=== PATIENT | male | born 1970 | race Caucasian/White ===

== ENCOUNTER 2020-04-17 13:04 | Observation (INO) | payer SELFPAY ==
[2020-04-17] VITALS (15 sets, daily range): BP systolic 91–131; BP diastolic 53–87; PULSE 49–80; RESP 10–19; TEMP 36.6–37.1; O2SAT 96–100; BMI 22.4; BMI 21.8; BMI 20.7; BMI 20.8
--- NOTE | 2020-04-17 13:05 | CT_ITS ---
STUDY: CT HEAD STROKE PROTOCOL W/O CONTRAST INJECTION REASON FOR EXAM: Male, 49 years old. CVA RADIATION DOSAGE (If Supplied By Facility): CTDIvol = ( ) mGy, DLP = ( ) mGycm TECHNIQUE: Transaxial CT imaging of the brain was performed without administration of intravenous contrast material. Individualized dose optimization techniques were used for this CT. COMPARISON: No relevant priors. FINDINGS: Normal soft tissue structures. Normal calvarium. Normal size ventricles and extra-axial spaces for the patient''s age. Normal white matter tracts of the cerebral hemispheres. Normal basal ganglia and thalami. Normal brainstem. Normal cerebellum. There is no intracranial hemorrhage. There are no findings of an acute ischemic infarction. Normal visualized paranasal sinuses. ASPECT score: CT/STROKE Brain/Head without Cont IMPRESSION: Normal unenhanced CT scan of the brain. N.B. : The above information has been verbally conveyed by Michele Costello MD to ARNAUD Lopez on 04/17/2020 13:22:50 (ET). Electronically Signed: Michele Costello MD at 13:24 EST Tel , Service support ,
--- NOTE | 2020-04-17 13:05 | RAD_ITS ---
STUDY: X-RAY CHEST REASON FOR EXAM: Male, 49 years old. NEURO DEFICIT, ACUTE, STROKE SUSPECTED. SLIGHT CHEST DISCOMFORT. TECHNIQUE: Single AP portable view of the chest. COMPARISON: None. FINDINGS: There are calcified granulomas in the right upper lobe. The lungs are clear and expanded. There is no demonstrated pleural abnormality. Normal size heart. Normal mediastinum and manny. Normal visualized pulmonary arteries. Normal visualized aortic arch and descending thoracic aorta. Dextroscoliosis of the thoracic spine. Partially visualized lumbar spine fusion. Normal visualized ribs, clavicles, and shoulders. There is no demonstrated abnormality of the visualized soft tissue structures of the upper abdomen. RAD/Chest 1 View IMPRESSION: Degenerative changes, as described above. No demonstrated acute cardiopulmonary process. Electronically Signed: Yu Rose MD at 14:38 EST Tel , Service support ,
--- NOTE | 2020-04-17 13:05 | EKG12_ITS ---
Test Reason : STROKE ALERT Blood Pressure : / mmHG Vent. Rate : 072 BPM Atrial Rate : 072 BPM P-R Int : 158 ms QRS Dur : 104 ms QT Int : 392 ms P-R-T Axes : 065 073 058 degrees QTc Int : 429 ms Normal sinus rhythm Normal ECG Confirmed by FRIDA METCALF, ANGEL ([id number]), technical editor MICHAELA GABRIEL ([id number]) on 04/19/2020 11:55:15 A M Referred By: CANDICE Confirmed By:OSMAN GALICIA MD
--- NOTE | 2020-04-17 13:06 | CT_ITS ---
STUDY: CTA HEAD AND NECK WITH CONTRAST REASON FOR EXAM: Male, 49 years old. CVA, RT SIDED WEAKNESS, PREV STROKE ONE YR AGO RADIATION DOSAGE (If Supplied By Facility): CTDIvol = ( 19.29 ) mGy, DLP = ( 665.05 ) mGycm TECHNIQUE: CT angiography was performed with a multi-detector CT scanner. Data acquisition was obtained from the skull base through the vertex following intravenous administration of IV 100mL Isovue-370. MIP images were reconstructed from the axial data set. Post-processing of the angiographic images was performed, with multiplanar reformation and 3D reconstruction. Individualized dose optimization techniques were used for this CT. COMPARISON: No relevant priors. FINDINGS: Normal bilateral petrous carotid arteries. Normal right cavernous carotid artery with a normal supraclinoid bifurcation. Normal left cavernous carotid artery with a normal supraclinoid bifurcation. Normal right A1 segments of the anterior cerebral artery. Normal left A1 segments of the anterior cerebral artery. Normal intact anterior communicating artery (ACOM). Normal bilateral A2 segments of the anterior cerebral arteries. Normal right M1 and M2 segments of the middle cerebral arteries, with a normal M1 bifurcation. Normal left M1 and M2 segments of the middle cerebral arteries, with a normal M1 bifurcation. Normal right posterior communicating artery (PCOM). Normal left posterior communicating artery (PCOM). Normal bilateral vertebral arteries. Normal basilar artery with a normal basilar bifurcation. The visualized bilateral superior cerebellar (SCA) arteries are normal. Normal bilateral P1, P2 and visualized P3 segments of the posterior cerebral arteries. There is no demonstrated aneurysm of the [place] of [place]. There is no demonstrated abnormality of the visualized brain. AORTIC ARCH: Normal visualized aortic arch. Normal origins of the brachiocephalic, left common carotid, and left subclavian arteries. RIGHT CAROTID ARTERIES: Normal right common carotid artery (CCA). Normal right common carotid bulb. Normal origin of the right internal carotid (ICA) artery without a hemodynamically significant stenosis. Normal visualized cervical portion of the right internal carotid artery. Normal origin of the right external carotid artery (ECA). LEFT CAROTID ARTERIES: Normal left common carotid artery (CCA). Normal left common carotid bulb. Normal origin of the left internal carotid (ICA) artery without a hemodynamically significant stenosis. Normal visualized cervical portion of the left internal carotid artery. Normal origin of the left external carotid artery (ECA). VERTEBRAL ARTERIES: Normal bilateral vertebral arteries. CT/STROKE CTA Head AND Neck W/Con IMPRESSION: Normal CTA Head and neck with contrast. N.B. : The above information has been verbally conveyed by Michele Costello MD to ARNAUD Lopez on 04/17/2020 13:40:31 (ET). Electronically Signed: Michele Costello MD at 13:41 EST Tel , Service support ,
--- NOTE | 2020-04-17 13:08 | ED.VISSUMM ---
- ER Visit Summary Date of Service: 04/17/20 Chief Complaint: [Blurred vision and paresthesias to the right arm and right leg] History of Present Illness: The patient is a 49 M [presents to the emergency department with symptoms that started this morning at 9 AM. Patient states that initially started with certain blurred vision in both eyes. He denies visual field loss. Patient states that he then developed numbness and tingling in the right arm and right leg and feeling he is having a tougher time walking because the leg feels somewhat more weak. Patient tells me he had a stroke about a year ago and was seen at a hospital in [place]. Patient did not have any leftover deficits from prior stroke. Patient did not receive TPA with his prior stroke. Patient otherwise tells me he has no medical history. Patient is a smoker. Patient has had prior spinal fusion.] Physical Examination: [HEENT-PERRLA, EOMI. Cranial nerves II through XII grossly intact. TMs clear. Mucous membranes moist. No adenopathy. Cardiovascular-regular rate and rhythm without murmur or ectopy Lungs-clear to auscultation, chest wall stable without crepitus or subcu emphysema Abdomen-normoactive bowel sounds, soft, nontender, no rebound or rigidity, no peritoneal signs. Neuro exam-patient has an NIH stroke scale of 2 for some subtle weakness of the right leg compared to the left and paresthesias of the right leg and arm. No ataxia noted. GCS is 15. No facial droop noted. Extremities-intact ?4, normal range of motion, normal pulses, atraumatic] Test Results: [EKG obtained on arrival shows sinus rhythm with a ventricular rate of 72 bpm with no acute ST segment changes. CBC with differential showed a white of 8.3, hemoglobin 13.8, hematocrit 42.5, placed 352. Chemistries unremarkable. INR was 1.0. Troponin less than 0.015. CT scan of the brain without contrast was normal. CTA of the head and neck obtained was normal.] Emergency Department Course and Treatment: [IV line established on arrival. Patient placed on a monitoring and evaluation advisor. A stroke team was called immediately upon patient arrival. Patient is not a TPA candidate as he was 4 hours from symptom onset on arrival to the emergency department. Patient was evaluated by neurologist and neurologist was in agreement that patient's NIH was a 2 and was outside the window for TPA.] Treatment Plan: [Admit for further work-up of stroke] Disposition: [Admit] Impression: [CVA] This note was generated with [employer] dictation software. It may contain incorrect words, spelling, and punctuation that were not noted in review of the chart prior to signing ED Disposition - Plan for ED Patient: Referrals: NOT,DEFINED [Primary Care Provider] -
--- NOTE | 2020-04-17 13:11 | CM.ED ---
Social Work Responding to stroke alert. Patient A&O. Patient speaking with medical team. No family currently present. Will continue to follow as needed. Amado Garcia MSW, ROWDYS
[2020-04-17 13:21] LABS: Absolute Lymphocyte Count 2.26 X10^3/uL (0.83-4.51); Absolute Neutrophil Count 5.1 X10^3/uL (2.0-7.7); Basophil# 0.03 X10^3/uL; Basophil% 0.4 % (0-1); Eosinophil# 0.31 X10^3/uL; Eosinophils% 3.7 % (0-5); Hematocrit 42.5 % (40-54); Hemoglobin 13.8 g/dL (13.0-16.5); Lymphocyte # 2.26 X10^3/ul (4.0); Lymphocyte % 27.1 % (19-41); Mean Corp Hgb Conc 32.5 g/dL (32-36); Mean Corpuscular Hgb 32.3 pg (27.0-32.0); Mean Corpuscular Volume 99.5 fL (80-94); Mean Platelet Vol. 9.2 fl (6.2-12.0); Monocyte% 7.2 % (0-10); NRBC Flagged by Analyzer 0 % (0-5); Neutrophil # 5.11 X10^3/uL (2.7-7.7); Neutrophil % 61.4 % (47-70); Platelet Count 352 K/mm3 (150-450); RBC Distribution Width CV 12.6 % (11.6-14.6); RBC Distribution Width SD 46.5 fl (35.1-43.9); Red Blood Count 4.27 M/mm3 (4.6-6.2); White Blood Count 8.3 K/mm3 (4.4-11.0)
[2020-04-17 13:36] LABS: Prothrombin Time (Protime)PT. 12.5 SECONDS (11.7-14.9)
[2020-04-17 13:37] LABS: Anion Gap 4 (5-15); BUN 14 mg/dL (7-18); BUN/Creat Ratio 11.9 RATIO (10-20); Calcium,Total 9.1 mg/dL (8.5-10.1); Chloride 106 mmol/L (98-107); Creatinine, Serum 1.18 mg/dL (0.70-1.30); EST Glomerular Filtration Rate 69 mL/min (>60); Est Glom Filt Rate - Afr Amer 84 mL/min (>60); Estimated Creatinine Clearance 76.47 ml/min; Glucose 110 mg/dL (74-106); Partial Thromboplast Time 28.4 Seconds (24.1-36.2); Potassium 4.1 mmol/L (3.5-5.1); Sodium Level 139 mmol/L (136-145)
[2020-04-17] MEDS: 0.9% Normal Saline 1,000 ML 100 ML IV ×3 (13:46→19:46)
[2020-04-17 13:51] LABS: Bedside Glucose 111 mg/dL (70-110)
--- NOTE | 2020-04-17 14:06 | HP.PCM_ITS ---
Problem List (1) CVA (cerebral vascular accident) Status: Acute Qualifiers: CVA mechanism: unspecified Qualified Code(s): I63.9 - Cerebral infarction, unspecified (2) History of CVA (cerebrovascular accident) Status: Chronic (3) Seizure disorder Status: Chronic (4) Tobacco use Status: Chronic History of Present Illness Date of Admission: 04/17/20 Chief Complaint: R sided paresthesias, Blurred vision. The patient is a 49 y/o M w/ PMHx: ? Hx CVA ~ 1 year prior with no deficits and no history of TPA administration, Tobacco use, Chronic back pain with history of spinal fusion, Seizure disorder who reports not having taken his medication for several months who presents to the [facility] ED on 04/17/20 with history of onset at approximately 9 AM right-sided upper and lower extremity paresthesias described as a tingling and numbness as well as bilateral eye vision blurriness with no specific field deficit or losses as well as reportedly sensation of lower extremity weakness with history of remote stroke approximately 1 year prior to current presentation evaluated that time in [place]. 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 He states the job opportunity was not exactly what he thought it was can be and has no intention of taking it. Patient currently reporting a frontal throbbing headache, rated 3-4 out of 10. Denies specifically any migraine history. Work-up in the ED included T 98.7, heart rate 80, BP 131/81, respiratory rate 19, 99% on room air, CBC with WC 8.3, hemoglobin 13.8, platelet 350 without shift, unremarkable coags, unremarkable BMP aside glucose 110, troponin less than 0.015, CT of the brain with no acute intracranial findings, unremarkable normal-appearing CTA head and neck, EKG with sinus rhythm with no acute cardiopulmonary findings. The ED patient was admini stered normal saline. ED NH stroke scale was 2 (RLE mild weakness and paresthesias) with evaluation per neurology, teleneurology and felt outside the TPA window. In the ED of note patient did also have appearance of right facial droop but this corrects when he is distracted and teleneurology did note the same thing. Past Medical History Past Medical History (Chronic Problems): Chronic Problems History of CVA (cerebrovascular accident) (Chronic) Seizure disorder (Chronic) Tobacco use (Chronic) Allergies No Known Allergies Allergy (Verified 04/17/20 13:05) Home Medications: Ambulatory Orders Medication Instructions Recorded Phenytoin [Dilantin] 150 mg PO DAILY 04/17/20 Surgical History: - - Lumbar spinal fusion. Psychiatric History: No pertinent psych hx Lives: Alone Smoking Status: Current every day smoker - Patient with ongoing 1 pack/day cigarette tobacco usage since she was a teenager. Tobacco Use: Cigarettes Alcohol: None Drugs: None - *Family History Maternal History Items: Diabetes Paternal History Items: Heart Disease - Father with history of related to [place] at age 67. Review of Systems Constitutional: Reports: Fatigue. Denies: Chills, Fever, Weight Change HEENT: Reports: Head Aches. Denies: Sinus Congestion, Sinus Drainage Cardiovascular: Denies: Chest Pain, Palpitations Respiratory: Denies: Cough, Shortness of breath at rest, Sputum production Gastrointestinal: Denies: Abdominal Pain, Nausea, Vomiting Genitourinary: Denies: Dysuria Musculoskeletal: Reports: Back Pain, Joint Pain. Denies: Joint Tenderness Skin: Denies: Rash, Wounds Neurological: Reports: Blurred vision, Focal weakness, Numbness, Tingling, Seizures - Seizure disorder off medications., - - R facial droop. Psychiatric: Denies: Anxiety, Depression, Homicidal Ideations, Suicidal Ideations Hematologic/ Lymphatic: Denies: Easy Bruising, Easy Bleeding VTE Information - Inpt Only VTE Present on Admission: No VTE Mechan Device Prophylaxis: SCD's VTE Pharm Prophylaxis ordered?: Yes Subjective: Patient seated upright in ED bed, no distress evident, notes headache otherwise no complaints. Objective: Physical Examination: General: awake, alert, oriented x 3 and cooperative, seated upright in the ED bed, no acute distress. Skin: normal color, turgor, no icterus, cyanosis. HEENT: AT/NC, EOMI, PERRLA, MMM, no carotid bruits or JVD noted. Lungs: Diminished breath sounds, greater bases, normal effort, no rales, ronchi or wheezing. Heart: Regular rate and rhythm; no gallop, rub audible. Abdomen: soft, NTTP, ND, normal BS, no HSM. Extremities: no cyanosis, clubbing, or edema. Neurological: patient awake, alert, oriented x 3; cognitive function appears intact; pupils equally reactive to light and accomodation; cranial nerves II-XII grossly normal except complaining of bilateral still blurry vision although peripheral stallings intact as well as right-sided facial droop but corrects when distracted and with smile, moving all extremities, continues to describe right- sided facial and upper and lower extremity paresthesias, moving all 4 extremities, [id number] and [id number] appropriate, negative Babinski, Mcfadden sign present. Psychiatric: affect appears normal, no acute evidence of depressive or anxiety feelings. - Physical Exam Vitals/I&O's: Vital Signs Temp Pulse Resp BP Pulse Ox 98.7 F 71 15 114/81 H 100 04/17/20 13:28 04/17/20 13:38 04/17/20 13:38 04/17/20 13:38 04/17/20 13:38 Oxygen Delivery Method Room Air Weight: 160 lb 14.999 oz Body Mass Index (BMI) 21.8 Finger Stick Blood Glucose 111 Laboratory Results 04/17/20 13:10: WBC 8.3, RBC 4.27 L, Hgb 13.8, Hct 42.5, MCV 99.5 H, MCH 32.3 H, MCHC 32.5, RDW Std Deviation 46.5 H, RDW Coeff of Alan 12.6, Plt Count 352, MPV 9.2, Immature Gran % (Auto) 0.200, Neut % (Auto) 61.4, Lymph % (Auto) 27.1, [place] % (Auto) 7.2, Eos % (Auto) 3.7, Baso % (Auto) 0.4, Absolute Neuts (auto) 5.1, Absolute Lymphs (auto) 2.26, Nucleated RBC % 0 04/17/20 13:10: PT 12.5, INR 1.0, APTT 28.4 04/17/20 13:10: Sodium 139, Potassium 4.1, Chloride 106, Carbon Dioxide 29.0, Anion Gap 4 L, BUN 14, Creatinine 1.18, Estim Creat Clear Calc 76.47, Est GFR (MDRD) Af Amer 84, Est GFR (MDRD) Non-Af 69, BUN/Creatinine Ratio 11.9, Glucose 110 H, Calcium 9.1, Troponin I < 0.015 04/17/20 13:21: POC Glucose 111 H Current Medications Sodium Chloride () 1,000 mls @ 100 mls/hr IV .Q10H ONE Stop: 04/17/20 23:04 Last Admin: 04/17/20 13:46 Dose: 100 mls/hr Documented by: Iopamidol (Contrast Allergy Safety Check) 0 ml IV X1 TI Labetalol HCl (Labetalol (Prefilled) 20 Mg/4 Ml) 20 mg IV X1 PRN PRN Reason: BLOOD PRESSURE Assessment/Plan All Active Problems CVA (cerebral vascular accident) (Acute) The patient is a 49 y/o M w/ PMHx: ? Hx CVA ~ 1 year prior with no deficits, Tobacco use, Chronic back pain, Seizure disorder who presents to the [facility] ED on 04/17/20 with history of onset at approximately 9 AM right-sided upper and lower extremity paresthesias described as a tingling and numbness as well as bilateral eye vision blurriness with no specific field deficit or losses as well as reportedly sensation of lower extremity weakness. 1. Right-sided paresthesias, right lower extremity weakness, right questionable facial droop concerning for TIA/CVA: Will admit to PCU, will obtain MRI Brain, ECHO, PT/OT/Speech/Nutrition evaluation per protocol. Will consult Neurology for evaluation once evaluation completed for input. Will allow permissive HTN, maintain on asa, add high dose statin w/ AM FLP, fall precautions. Mag, TSH, HgBA1c, FLP pending as noted. Patient examination in the emergency room with some concern for purposely falsified examination however when patient is distracted examination appropriate therefore this may need to be further investigated if MRI is negative. Will obtain UDS. 2. History of Seizure: Restart home phenytoin regimen as patient notes he is not been using this for several months for unclear reason. 3. Tobacco Abuse: Encouraged cessation, inpatient consultation per RT, NR if desired. 4. Chronic back pain: s/p Spinal fusion, encourage positional changes, fall precautions, PT/OT consulted. 5. DVT prophylaxis: SCDs, lovenox. OBSV E&M: 74181 Initial observation care L3
--- NOTE | 2020-04-17 14:20 | ED.RN ---
[facility] TO [facility] ABOUT [facility] PATIENT AND I WAS 11TH IN LINE ON THE PHONE AND WAS NOT ABLE TO LEAVE A MESSAGE.
[2020-04-17] MEDS: Aspirin 81 MG TAB.CHEW PO (14:37)
--- NOTE | 2020-04-17 15:26 | PCS.PANDOC ---
PANDEMIC DOCUMENTATION INITIATED: Date: 04/17/2020 Time: 7486
[2020-04-17 16:24] LABS: Magnesium 2.2 mg/dL (1.6-2.6)
[2020-04-17] MEDS: CLARIFY ORDER NOTE (16:32)
[2020-04-17] MEDS: Acetaminophen 325 MG Tablet 650 MG PO (20:48)
[2020-04-17] MEDS: Atorvastatin Calcium 80 MG Tablet PO (20:48)
[2020-04-18] VITALS (8 sets, daily range): BP systolic 100–124; BP diastolic 61–87; PULSE 56–80; RESP 16; TEMP 36.5–36.7; O2SAT 97–100
[2020-04-18 04:06] LABS: Amphetamine Urine VISTA NEGATIVE (<1000 ng/mL); Barbiturate Urine VISTA NEGATIVE (< 200 ng/mL); Benzodiazepine Urine VISTA NEGATIVE (< 200 ng/mL); Cocaine Urine VISTA POSITIVE (< 300 ng/mL); Ecstacy Urine VISTA NEGATIVE (< 500 ng/mL); Methadone Urine VISTA NEGATIVE (< 300 ng/mL); PCP Urine VISTA NEGATIVE (< 25 ng/mL); THC Urine VISTA NEGATIVE (< 50 ng/mL); Vista UDS pH Range 6
[2020-04-18] MEDS: 0.9% Normal Saline 1,000 ML 100 ML IV (05:55)
[2020-04-18 06:12] LABS: Absolute Lymphocyte Count 2.36 X10^3/uL (0.83-4.51); Absolute Neutrophil Count 3.2 X10^3/uL (2.0-7.7); Basophil# 0.03 X10^3/uL; Basophil% 0.5 % (0-1); Eosinophil# 0.34 X10^3/uL; Eosinophils% 5.3 % (0-5); Hemoglobin 11.8 g/dL (13.0-16.5); Lymphocyte # 2.36 X10^3/ul (4.0); Lymphocyte % 36.5 % (19-41); Mean Corp Hgb Conc 31.9 g/dL (32-36); Mean Corpuscular Hgb 32.4 pg (27.0-32.0); Mean Corpuscular Volume 101.6 fL (80-94); Mean Platelet Vol. 9.5 fl (6.2-12.0); Monocyte# 0.49 X10^3/uL; Monocyte% 7.6 % (0-10); NRBC Flagged by Analyzer 0 % (0-5); Neutrophil # 3.22 X10^3/uL (2.7-7.7); Neutrophil % 49.8 % (47-70); Platelet Count 249 K/mm3 (150-450); RBC Distribution Width CV 12.8 % (11.6-14.6); RBC Distribution Width SD 48.2 fl (35.1-43.9); Red Blood Count 3.64 M/mm3 (4.6-6.2); White Blood Count 6.5 K/mm3 (4.4-11.0)
[2020-04-18 06:47] LABS: AST(SGOT) 32 U/L (15-37); Alanine Aminotransfer ALT/SGPT 25 U/L (16-61); Alkaline Phosphatase 54 U/L (45-117); Anion Gap 4 (5-15); BUN 12 mg/dL (7-18); BUN/Creat Ratio 15.3 RATIO (10-20); Calcium,Total 8.3 mg/dL (8.5-10.1); Chloride 112 mmol/L (98-107); Cholesterol 132 mg/dL (200); Creatinine, Serum 0.78 mg/dL (0.70-1.30); EST Glomerular Filtration Rate 111 mL/min (>60); Est Glom Filt Rate - Afr Amer 134 mL/min (>60); Estimated Creatinine Clearance 113.31 ml/min; Globulin 2.9 g/dL (2.2-4.2); Glucose 98 mg/dL (74-106); High Density Lipoprotein 45 mg/dL; Potassium 4.2 mmol/L (3.5-5.1); Protein, Total 5.9 g/dL (6.4-8.2); Sodium Level 142 mmol/L (136-145); Triglycerides 73 mg/dL; Very Low Density Lipoprotein 15 mg/dL (5-40)
[2020-04-18 07:30] LABS: Hemoglobin A1c 5.3 % (3.8-5.6)
[2020-04-18] MEDS: Aspirin 81 MG TAB.CHEW PO (08:52)
--- NOTE | 2020-04-18 09:18 | MRI_ITS ---
STUDY: MRI BRAIN WITHOUT CONTRAST REASON FOR EXAM: Male, 49 years old. Blurry vision. Right-sided paralysis. Chest pain. History of previous stroke. TECHNIQUE: Standardized multiplanar fat and water weighted pulse sequences were obtained. COMPARISON: CT head without contrast 04/17/2020. FINDINGS: No diffusion restriction to suspect acute or subacute ischemic infarct. No focal signal abnormalities throughout the brain parenchyma in all of the pulse sequences despite motion degradation artifacts. Normal size of the ventricles and extra-axial spaces for the patient''s age. Normal white matter tracts of the supratentorial brain. Prominent CSF space behind the left cerebellar hemisphere. The left cerebellar hemisphere is hypoplastic when compared to the right. Normal bilateral basal ganglia. Normal thalami. There is no extra-axial fluid accumulation. Normal flow voids within the major intracranial circulation suggesting patency by spin echo criteria. Normal sella turcica, pituitary gland, infundibular stalk, optic chiasm and hypothalamus. Normal tectal plate and pineal gland. Normal midbrain, olivia and medulla. Normal cerebellum. Normal basal cisterns. Normal bilateral temporal bones. Normal bilateral internal auditory canals. No demonstrated orbital abnormality, within the constraints of a routine brain study. Normal visualized paranasal sinuses. Normal calvarium and skull base. Normal visualized soft tissue structures. Normal visualized upper cervical spine. MRI/Brain without Contrast IMPRESSION: 1. Hypoplastic left cerebellar hemisphere. 2. No MRI evidence of acute or subacute ischemic infarct or remote cortical based ischemic infarct. 3. No interval changes when compared to CT head scan without 04/17/2020. Electronically Signed: Cristian Patel MD at 10:42 EST , Service support ,
[2020-04-18] MEDS: 0.9% Saline Lock 10 ML Syringe IV (11:19)
--- NOTE | 2020-04-18 11:59 | DCINST_ITS ---
- Discharge Diagnoses Current Active Problems: Current Active and Chronic Problems TIA Seizure disorder (Chronic) Tobacco use (Chronic) Cocaine use You will use the following diet at home:: No restrictions Discharge Activity: Return to Normal Activity Call your doctor if you observe: Shortness of breath, Dizziness, Fainting spells, Chest pain Allergies/Adverse Reactions: Allergies No Known Allergies Allergy (Verified 04/17/20 13:05) Medications to take at Discharge Phenytoin [Dilantin] 150 mg PO DAILY 04/17/20 Aspirin E.C. [Ecotrin] 81 mg PO DAILY@0800 #30 tab 04/18/20 Atorvastatin Calcium [Lipitor] 20 mg PO QHS #30 tab 04/18/20 The following prescriptions were given: Aspirin E.C. [Ecotrin] 81 mg PO DAILY@0800 #30 tab Transmission Status: Pending to [address] [address] Atorvastatin Calcium [Lipitor] 20 mg PO QHS #30 tab Transmission Status: Pending to [facility] Primary Care Physician: NOT,DEFINED [NON-STAFF] - Please follow up with your Primary Care Physician in: 1 Week Test Results: Test results from this visit will be discussed in further detail at your follow- up appointment, if applicable. Proposed Discharge Date: 04/18/20
[2020-04-18 12:00] LABS: T4 Free Direct 0.73 ng/dL (0.76-1.46)
--- NOTE | 2020-04-18 12:01 | DS.PCM_ITS ---
Discharge Date and Diagnosis Date of Admission: 04/17/20 Date of Discharge: 04/18/20 - Primary Discharge Diagnosis Acute Problems: Active Problems 1. TIA 2. History of seizure 3. Tobacco dependence 4. Cocaine use 5. Chronic back pain with history of spinal fusion - Secondary Discharge Diagnosis Chronic Problems: Chronic Problems History of CVA (cerebrovascular accident) (Chronic) Seizure disorder (Chronic) Tobacco use (Chronic) Hospital Course and Treatment Imaging Results: Diagnostic Data Brain CT 04/17/20 13:05 IMPRESSION: Normal unenhanced CT scan of the brain. N.B. : The above information has been verbally conveyed by Michele Costello MD to ARNAUD Lopez, on 04/17/2020 13:22:50 (ET). Electronically Signed: Michele Costello MD at 13:24 EST Tel , Service support , ADDENDUM: 04/17/20 1331 IMPRESSION: Normal unenhanced CT scan of the brain. N.B. : The above information has been verbally conveyed by Michele Costello MD to ARNAUD Lopez, on 04/17/2020 13:22:50 (ET). Electronically Signed: Michele Costello MD at 13:24 EST Tel , Service support , Chest X-Ray 04/17/20 13:05 IMPRESSION: Degenerative changes, as described above. No demonstrated acute cardiopulmonary process. Electronically Signed: Yu Rose MD at 14:38 EST Tel , Service support , Head/Neck CTA 04/17/20 13:06 IMPRESSION: Normal CTA Head and neck with contrast. N.B. : The above information has been verbally conveyed by Michele Costello MD to ARNAUD Lopez, on 04/17/2020 13:40:31 (ET). Electronically Signed: Michele Costello MD at 13:41 EST Tel , Service support , ADDENDUM: 04/17/20 1348 IMPRESSION: Normal CTA Head and neck with contrast. N.B. : The above information has been verbally conveyed by Michele Costello MD to ARNAUD Lopez, on 04/17/2020 13:40:31 (ET). Electronically Signed: Michele Costello MD at 13:41 EST Tel , Service support , Brain MRI 04/18/20 09:18 IMPRESSION: 1. Hypoplastic left cerebellar hemisphere. 2. No MRI evidence of acute or subacute ischemic infarct or remote cortical based ischemic infarct. 3. No interval changes when compared to CT head scan without 04/17/2020. Electronically Signed: Cristian Patel MD at 10:42 EST , Service support , Operations: None Procedures: None Summary of Care Provided: The patient is a 49 year old M admitted 04/17/2020 due to right-sided paresthesias and blurred vision. 1. TIA-patient presents with right-sided paresthesias, right lower extremity subjective weakness and blurred vision. MRI of brain showed no evidence of acute or subacute ischemic infarct or remote ischemic infarct. CTA of head and neck normal. Aspirin, statin at discharge. Follow-up with PCP in 1 week. 2. History of seizure-on Dilantin. 3. Tobacco dependence-encouraged cessation. 4. Cocaine use-tox screen positive for cocaine. Encouraged cessation. 5. Chronic back pain with history of spinal fusion 6. Elevated TSH-Free T4 pending. Recommend follow-up with PCP in 1 week for further evaluation. Patient seen and examined prior to discharge. Physical assessment as noted below. Patient is stable for discharge with follow up recommendations as noted above. This patient was seen by NITO Gutiérrez under the supervision of Dr. Brower. - Physical Exam Vitals/I&O's: Vital Signs Temp Pulse Resp BP Pulse Ox 97.9 F 56 L 16 107/63 98 04/18/20 10:55 04/18/20 10:55 04/18/20 10:55 04/18/20 10:55 04/18/20 10:55 Oxygen Delivery Method Room Air Weight: 157 lb 10.088 oz Body Mass Index (BMI) 20.7 Finger Stick Blood Glucose 111 Intake and Output for Last 24 Hours 04/16/20 04/17/20 04/18/20 23:59 23:59 23:59 Intake Total 1186.66 / 1666.66 1600 / 1600 Output Total 300 / 300 Balance 1186.66 / 1666.66 1300 / 1300 General: Alert, Oriented x3, Cooperative HEENT: Atraumatic, PERRLA, EOMI, Normocephalic Neck: Supple, No JVD, Negative Carotid Bruits Lungs: Clear to auscultation, Normal air movement Cardiovascular: Regular rate, No murmurs Abdomen: Bowel Sounds Present, Soft, Non Tender Extremities: No clubbing, No cyanosis, No edema, Capillary Refill Less than 3 Seconds Skin: No rashes, No breakdown Musculoskeletal: No Tenderness to Palpation of Joints or Extremities Neurological: Cranial nerves II-XII grossly intact, Neuro grossly intact Psych/Mental Status: Normal Affect, Appropriate Laboratory Results 04/17/20 13:10: WBC 8.3, RBC 4.27 L, Hgb 13.8, Hct 42.5, MCV 99.5 H, MCH 32.3 H, MCHC 32.5, RDW Std Deviation 46.5 H, RDW Coeff of Alan 12.6, Plt Count 352, MPV 9.2, Immature Gran % (Auto) 0.200, Neut % (Auto) 61.4, Lymph % (Auto) 27.1, [place] % (Auto) 7.2, Eos % (Auto) 3.7, Baso % (Auto) 0.4, Absolute Neuts (auto) 5.1, Absolute Lymphs (auto) 2.26, Nucleated RBC % 0 04/17/20 13:10: PT 12.5, INR 1.0, APTT 28.4 04/17/20 13:10: Sodium 139, Potassium 4.1, Chloride 106, Carbon Dioxide 29.0, Anion Gap 4 L, BUN 14, Creatinine 1.18, Estim Creat Clear Calc 76.47, Est GFR (MDRD) Af Amer 84, Est GFR (MDRD) Non-Af 69, BUN/Creatinine Ratio 11.9, Glucose 110 H, Calcium 9.1, Troponin I < 0.015 04/17/20 13:10: Magnesium 2.2, TSH 16.90 H 04/17/20 13:21: POC Glucose 111 H 04/18/20 03:10: Urine Opiates Screen NEGATIVE, Urine Methadone Screen NEGATIVE, Ur Barbiturates Screen NEGATIVE, Ur Phencyclidine Scrn NEGATIVE, Ur Amphetamines Screen NEGATIVE, U Methamphetamin-MDMA NEGATIVE, U Benzodiazepines Scrn NEGATIVE, Urine Cocaine Screen POSITIVE H, U Cannabinoids Screen NEGATIVE, Ur Drug Screen Comment 04/18/20 05:27: WBC 6.5, RBC 3.64 L, Hgb 11.8 L, Hct 37.0 L, MCV 101.6 H, MCH 32.4 H, MCHC 31.9 L, RDW Std Deviation 48.2 H, RDW Coeff of Alan 12.8, Plt Count 249, MPV 9.5, Immature Gran % (Auto) 0.300, Neut % (Auto) 49.8, Lymph % (Auto) 36.5, [place] % (Auto) 7.6, Eos % (Auto) 5.3 H, Baso % (Auto) 0.5, Absolute Neuts (auto) 3.2, Absolute Lymphs (auto) 2.36, Nucleated RBC % 0 04/18/20 05:27: Sodium 142, Potassium 4.2, Chloride 112 H, Carbon Dioxide 26.0, Anion Gap 4 L, BUN 12, Creatinine 0.78, Estim Creat Clear Calc 113.31, Est GFR (MDRD) Af Amer 134, Est GFR (MDRD) Non-Af 111, BUN/Creatinine Ratio 15.3, Glucose 98, Calcium 8.3 L, Total Bilirubin 0.30, AST 32, ALT 25, Alkaline Phosphatase 54, Total Protein 5.9 L, Albumin 3.0 L, Globulin 2.9, Albumin/Globulin Ratio 1.0, Triglycerides 73, Cholesterol 132, LDL Cholesterol 72, VLDL Cholesterol 15, HDL Cholesterol 45 04/18/20 05:27: Hemoglobin A1c 5.3 04/18/20 05:27: Free T4 0.73 L Current Medications Acetaminophen (Acetaminophen 325 Mg Tablet) 650 mg PO Q6H PRN PRN PRN Reason: Pain Score 1-10/Temp > 100.7 F Last Admin: 04/17/20 20:48 Dose: 650 mg Documented by: Al Hydroxide/Mg Hydroxide (Mag Hydrox/Al Hydrox/Simeth 30 Ml Udc) 30 ml PO Q6H PRN PRN PRN Reason: Gastric Burning Albuterol Sulfate (Albuterol 2.5 Mg/3 Ml Vial.Neb.) 2.5 mg INHALATION Q2H PRN PRN PRN Reason: Dyspnea, wheezing Aspirin (Aspirin 81 Mg Tab.Chew) 81 mg PO DAILY@0800 [facility] Last Admin: 04/18/20 08:52 Dose: 81 mg Documented by: Atorvastatin Calcium (Atorvastatin Calcium 80 Mg Tablet) 80 mg PO QHS [facility] Last Admin: 04/17/20 20:48 Dose: 80 mg Documented by: Enoxaparin Sodium (Enoxaparin 40 Mg/0.4 Ml Syringe) 40 mg SC DAILY [facility] Last Admin: 04/18/20 08:52 Dose: Not Given Documented by: Hydralazine HCl (Hydralazine 20 Mg/Ml Vial) 5 mg IV Q30M PRN PRN Reason: to maintain BP goals Sodium Chloride () 1,000 mls @ 100 mls/hr IV .Q10H [facility] Last Admin: 04/18/20 05:55 Dose: 100 mls/hr Documented by: Labetalol HCl (Labetalol (Prefilled) 20 Mg/4 Ml) 10 - 20 mg IV Q10M PRN PRN PRN Reason: to Maintain BP Goals Magnesium Hydroxide (Magnesium Hydroxide 30 Ml Udc) 30 ml PO DAILY PRN PRN PRN Reason: Constipation Melatonin (Melatonin 3 Mg Tablet) 3 mg PO QHS PRN PRN PRN Reason: INSOMNIA Nicotine (Nicotine 21 Mg Patch) 21 mg TD DAILY [facility] Last Admin: 04/18/20 08:52 Dose: 21 mg Documented by: Ondansetron HCl (Ondansetron 4 Mg/2 Ml Vial) 4 mg IV Q8H PRN PRN PRN Reason: NAUSEA/VOMITING Prochlorperazine Edisylate (Prochlorperazine 10 Mg/2 Ml Vial) 5 mg IV Q4H PRN PRN PRN Reason: Breakthrough Nausea/Vomiting Psyllium Hydrophilic Mucilloid (Psyllium 1 Packet) 1 packet PO DAILY PRN PRN PRN Reason: Constipation Senna/Docusate Sodium (Senna/Docusate Sodium 1 Tablet) 2 tablet PO BID PRN PRN PRN Reason: Constipation Sodium Chloride (0.9% Saline Lock 10 Ml Syringe) 10 - 40 ml IV UD PRN PRN Reason: SALINE FLUSH Last Admin: 04/18/20 11:19 Dose: 10 ml Documented by: Discharge Diet: No Restrictions Discharge Activity: Return to Normal Activity Call your doctor if you observe: Shortness of breath, Dizziness, Fainting spells, Chest pain Home Medications: Medications to take at Discharge Phenytoin [Dilantin] 150 mg PO DAILY 04/17/20 Aspirin E.C. [Ecotrin] 81 mg PO DAILY@0800 #30 tab 04/18/20 Atorvastatin Calcium [Lipitor] 20 mg PO QHS #30 tab 04/18/20 Following Prescriptions Were Given to Patient: Aspirin E.C. [Ecotrin] 81 mg PO DAILY@0800 #30 tab Transmission Status: Pending to [facility] [address] [address] Atorvastatin Calcium [Lipitor] 20 mg PO QHS #30 tab Transmission Status: Pending to [facility] [address] Primary Care Physician: NOT,DEFINED [NON-STAFF] - Please follow up with your Primary Care Physician in: 1 Week Disposition: Home Minutes spent on discharge:: 35 Patient Condition:: Stable Medical Necessity - Tobacco Use Smoking Status: Current every day smoker Tobacco Use: Cigarettes Meaningful Use Info Meaningful Use Diagnoses (Choose all that apply): None applicable
== END 2020-04-18 11:59 | disposition home or self-care (01) ==
LOC: ED 14:00 → PCU 14:38
PROVIDERS: Admitting Provider Family Medicine; Emergency Provider Emergency Medicine; Visit Provider Family Medicine
DX: G45.9 Transient cerebral ischemic attack, unspecified (principal); Z98.1 Arthrodesis status; F14.90 Cocaine use, unspecified, uncomplicated; G40.909 Epilepsy, unspecified, not intractable, without status epilepticus; Z86.73 Personal history of transient ischemic attack (TIA), and cerebral infarction without residual deficits; R53.1 Weakness; F17.210 Nicotine dependence, cigarettes, uncomplicated; R29.702 NIHSS score 2; R29.810 Facial weakness; Z79.899 Other long term (current) drug therapy; Z91.14 Patient's other noncompliance with medication regimen; E03.9 Hypothyroidism, unspecified
CPT/HCPCS: 36415; 70450; 70496; 70498; 70551; 71045; 80048; 80053; 80061; 80307; 82962; 83036; 83735; 84439; 84443; 84484; 85025; 85610; 85730; 92610; 93005; 94762; 96360; 96361; 97162; 97166; 99218; 99251; 99284; 99406; J7030; Q9967; A4216; G0378; G0463